=== PATIENT | female | born 1990 | race Caucasian/White ===

== ENCOUNTER → 2017-07-15 | Outpatient (CLI) | payer OTHER ==
--- NOTE | 2017-07-15 10:26 | KCIC ---
Examination: MRI of the right knee without contrast HISTORY: History of fall, pain COMPARISON: None available TECHNIQUE: Multiplanar, multisequence MR imaging of the right knee was performed without contrast. FINDINGS: The anterior cruciate ligament, posterior cruciate ligament appear intact. The medial meniscus, lateral meniscus grossly appears intact. The medial collateral ligament is intact. The lateral collateral ligamentous complex including the fibular collateral ligament, biceps femoris tendon, popliteus tendon grossly appears intact. The extensor mechanism is intact. Small knee joint effusion is identified. The visualized cartilage in the medial, lateral compartment femoral compartments grossly appears unremarkable. The medial retinaculum, lateral retinaculum appear intact. 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 IMPRESSION: 1. No evidence of internal derangement of the right knee. 2. Minimal knee joint effusion. Electronically signed by: Vel Hirsch MD (07/15/2017 10:22 AM) [id number]
--- NOTE | 2017-07-15 10:56 | KCIC ---
Examination: MRI of the left knee without contrast HISTORY: History of left knee pain, fall COMPARISON: None available TECHNIQUE: Multiplanar, multisequence MR imaging of the left knee was performed without contrast FINDINGS: The anterior cruciate ligament and posterior cruciate ligaments appear intact. The medial meniscus, lateral meniscus appears intact. The medial collateral ligament is intact. Lateral collateral ligamentous complex including the fibular collateral ligament complex and femoris tendon, popliteus tendon appear intact. The extensor mechanism is intact. There is trabecular edema identified in the medial tibial plateau and just inferior to the lateral tibial plateau with edema extending across the proximal tibia, is best visualized on axial series 3 image #22 likely bone marrow contusion with possible impaction fracture. There is subtle low T1 signal identified in the lateral aspect of the proximal tibia within the trabecular edema best visualized on series 4 image #23 likely nondisplaced impaction fracture. The medial retinaculum, lateral retinaculum appear intact. Minimal knee joint effusion identified. The cartilage in the medial, lateral, patellofemoral compartment grossly appears intact. The extensor mechanism is intact. IMPRESSION: 1. Trabecular edema identified in the medial tibial plateau and just inferior to the lateral tibial plateau with edema extending obliquely across the proximal tibia, is best visualized on axial series 3 image #22 and coronal image series 8 image 5 to image 8 likely bone marrow contusion with possible impaction fracture. There is subtle low T1 signal identified in the lateral aspect of the proximal tibia within the trabecular edema best visualized on series 4 image #23 likely nondisplaced impaction fracture. Recommend noncontrast CT for further evaluation. Ordering physician's office nurse Halima was informed at time of dictation. Electronically signed by: Vel Hirsch MD (07/15/2017 10:53 AM) [id number]
== END | disposition home or self-care (01) ==
LOC: KCIC MRI 07:42
PROVIDERS: ATTEND Orthopaedic Surgery
DX: M25.461 Effusion, right knee (principal); M25.462 Effusion, left knee
CPT/HCPCS: 73721